=== PATIENT | female | born 1950 | race Caucasian/White ===

== ENCOUNTER → 2016-08-13 | Outpatient (CLI) | payer MEDICARE ==
--- NOTE | 2016-08-13 15:29 | US ---
EXAMINATION TYPE: US transvaginal DATE OF EXAM: 08/13/2016 1:23 PM COMPARISON: NONE CLINICAL HISTORY: Ovarian Cyst N83.20. TECHNIQUE: Transvaginal (TV), per order Date of LMP: 16 years prior EXAM MEASUREMENTS: Uterus: 5.0 x 2.0 x 4.0 cm Endometrial Stripe: 0.2 cm Right Ovary: 3.0 x 1.8 x 1.7 cm Left Ovary: not visualized cm TECHNOLOGIST IMPRESSION: 1. Uterus: Anteverted 2. Endometrium: wnl 3. Right Ovary: cyst with some internal echoes measuring 1.5 x 1.2 x 1.1cm 4. Left Ovary: not visualized due to overlying bowel gas 5. Bilateral Adnexa: wnl 6. Posterior cul-de-sac: wnl IMPRESSION: 1. 1.5 cm cyst right ovary. Follow-up is recommended. 2. Pelvic ultrasound is otherwise unremarkable.
== END | disposition home or self-care (01) ==
LOC: RADUSWWP 13:01
PROVIDERS: ATTEND Obstetrics & Gynecology
DX: N83.201 Unspecified ovarian cyst, right side (principal)
CPT/HCPCS: 76830

== ENCOUNTER → 2016-08-16 | Outpatient (CLI) | payer MEDICARE ==
--- NOTE | 2016-08-16 10:39 | BD ---
EXAMINATION TYPE: MG DEXA axial skeleton. DATE OF EXAM: 08/16/2016 10:11 AM COMPARISON: NONE CLINICAL HISTORY: Height: 5 FT 6 IN Weight: 169 FRAX RISK QUESTIONS: Alcohol (3 or more units per day): NO Family History (Parent hip fracture): NO Glucocorticoids (More than 3mos): NO (Ex: prednisone, prednisolone, methylprednisolone, dexamethasone, and hydrocortisone). History of Fracture in Adulthood: YES Secondary Osteoporosis: 1. Type 1 Diabetes: NO 2. Hyperthyroidism: NO 3. Menopause before 45: NO 4. Malnutrition: NO 5. Chronic liver disease: NO Rheumatoid Arthritis: NO Current Tobacco Use: NO RISK FACTORS HISTORY OF: Other Fractures since Age 50: YES When: 6-8 YRS AGO Family History of Osteoporosis: YES Active: YES Postmenopausal woman: AGE 50 MEDICATIONS: Additional Medications: WELLBUTRIN, ATTENOLOL,CALCIUM Additional History: EXAM MEASUREMENTS: Bone mineral densitometry was performed using the [employer] System. Bone mineral density as measured about the Lumbar spine is: ----- L1-L4(G/cm2): 0.970 T Score Values are as follows: ----- L2: -1.9 ----- L3: -1.4 ----- L4: -2.0 ----- L1-L4: -1.7 Bone mineral density has: Decreased -7.8% since study of: 2012 Bone mineral density about the R hip (g/cm2): 0.947 Bone mineral density about the L hip (g/cm2): 0.927 T Score values are as follows: -----R Neck: -0.7 -----L Neck: -0.8 -----R Intertrochanter: -1.2 -----L Intertrochanter: -0.7 Bone mineral density has: Decreased -2.9% since study of: 2012 IMPRESSION: Osteopenia (T Score between -2.5 and -1 as noted by T score values There is slightly increased risk of fracture and the patient may be considered for treatment. Re-Screen 1-2 years. LUMBAR SPINE NOTE: T-SCORE=SD OF THE YOUNG ADULT MEAN.
--- NOTE | 2016-08-17 10:48 | MM ---
Reason for exam: screening (asymptomatic). Last mammogram was performed 1 year and 1 month ago. History: Patient is postmenopausal. Took estrogen for 6 years. Took progesterone for 5 years. Physical Findings: A clinical breast exam by your physician is recommended on an annual basis and results should be correlated with mammographic findings. MG 3D Screening Mammo W/Cad Bilateral CC and MLO view(s) were taken. Prior study comparison: July 14, 2015, bilateral MG 3d screening mammo w/cad. May 14, 2014, bilateral MG screening mammo w CAD. May 15, 2013, bilateral digital screening mammo w/CAD. The breast tissue is heterogeneously dense. This may lower the sensitivity of mammography. There is no discrete abnormality. ASSESSMENT: Negative, BI-RAD 1 RECOMMENDATION: Routine screening mammogram of both breasts in 1 year.
== END | disposition home or self-care (01) ==
LOC: RADMAMWWP 09:35
PROVIDERS: ATTEND Obstetrics & Gynecology
DX: Z12.31 Encounter for screening mammogram for malignant neoplasm of breast (principal); M85.88 Other specified disorders of bone density and structure, other site; C56.9 Malignant neoplasm of unspecified ovary
CPT/HCPCS: 86304; 77080; 77063; 36415; G0202

== ENCOUNTER → 2017-08-30 | Outpatient (CLI) | payer MEDICARE ==
--- NOTE | 2017-08-30 20:07 | US ---
EXAMINATION TYPE: US transvaginal DATE OF EXAM: 08/30/2017 COMPARISON: US CLINICAL HISTORY: Previous Ovarian CYst N83.20. TECHNIQUE: . Transabdominal sonographic images of the pelvis were acquired. Transvaginal sonographi c images were medically necessary to better assess the following anatomy: Date of LMP: 17 years prior EXAM MEASUREMENTS: Uterus: 6.1 x 2.2 x 3.3 cm Endometrial Stripe: 0.3 cm Right Ovary: 2.0 x 1.2 x 1.3 cm Left Ovary: 1.7 x 0.9 x 1.1 cm 1. Uterus: Anteverted, wnl 2. Endometrium: wnl 3. Right Ovary: The previously seen 1.5 cm cyst is no longer evident and there is a small 4 mm cysti c area seen. 4. Left Ovary: wnl 5. Bilateral Adnexa: wnl 6. Posterior cul-de-sac: wnl IMPRESSION: Resolution of the previously seen 1.5 cm right ovarian cyst. Endometrium and ovaries are within normal limits.
== END | disposition home or self-care (01) ==
LOC: RADUSWWP 15:25
PROVIDERS: ATTEND Obstetrics & Gynecology
DX: N83.209 Unspecified ovarian cyst, unspecified side (principal)
CPT/HCPCS: 76830

== ENCOUNTER → 2017-09-23 | Outpatient (CLI) | payer MEDICARE ==
--- NOTE | 2017-09-26 10:15 | MM ---
Reason for exam: screening (asymptomatic). Last mammogram was performed 1 year and 1 month ago. History: Patient is postmenopausal. Took estrogen for 6 years. Took progesterone for 5 years. Physical Findings: A clinical breast exam by your physician is recommended on an annual basis and results should be correlated with mammographic findings. MG 3D Screening Mammo W/Cad Bilateral CC and MLO view(s) were taken. Prior study comparison: August 16, 2016, bilateral MG 3d screening mammo w/cad. July 14, 2015, bilateral MG 3d screening mammo w/cad. The breast tissue is heterogeneously dense. This may lower the sensitivity of mammography. There is no discrete abnormality. ASSESSMENT: Negative, BI-RAD 1 RECOMMENDATION: Routine screening mammogram of both breasts in 1 year.
== END | disposition home or self-care (01) ==
LOC: RADMAMWWP 07:53
PROVIDERS: ATTEND Obstetrics & Gynecology
DX: Z12.31 Encounter for screening mammogram for malignant neoplasm of breast (principal); C56.9 Malignant neoplasm of unspecified ovary
CPT/HCPCS: 36415; 77063; 77067; 86304

== ENCOUNTER → 2018-10-06 | Outpatient (CLI) | payer MEDICARE ==
--- NOTE | 2018-10-06 13:22 | US ---
EXAMINATION TYPE: US transvaginal DATE OF EXAM: 10/06/2018 COMPARISON: US 2018 CLINICAL HISTORY: N83.0 OVARIAN CYST. Hx ovarian cyst. Hx tubal ligation. TECHNIQUE: Transvaginal (TV). Transvaginal sonographic images were obtained. Date of LMP: 18 years prior EXAM MEASUREMENTS: Uterus: 5.9 x 3.8 x 2.2 cm Endometrial Stripe: 0.20 cm Right Ovary: 2.3 x 1.7 x 1.0 cm Left Ovary: 1.5 x 1.1 x 0.6 cm 1. Uterus: Anteverted Anechoic areas seen cervix. 2. Endometrium: wnl 3. Right Ovary: Ill-defined borders. Anechoic areas seen. Larger: 0.6 x 0.6 x 0.6 cm. 4. Left Ovary: Appears wnl. 5. Bilateral Adnexa: wnl 6. Posterior cul-de-sac: wnl IMPRESSION: No sizable ovarian cyst identified.
== END ==
LOC: RADUSWWP 10:03
PROVIDERS: ATTEND Obstetrics & Gynecology
DX: N83.202 Unspecified ovarian cyst, left side (principal)
CPT/HCPCS: 76830

== ENCOUNTER → 2018-10-27 | Outpatient (CLI) | payer MEDICARE ==
--- NOTE | 2018-10-30 13:41 | MM ---
Reason for exam: screening (asymptomatic). Last mammogram was performed 1 year and 1 month ago. History: Patient is postmenopausal. Took estrogen for 6 years. Took progesterone for 5 years. Physical Findings: A clinical breast exam by your physician is recommended on an annual basis and results should be correlated with mammographic findings. MG 3D Screening Mammo W/Cad Bilateral CC and MLO view(s) were taken. Prior study comparison: September 23, 2017, bilateral MG 3d screening mammo w/cad. August 16, 2016, bilateral MG 3d screening mammo w/cad. The breast tissue is heterogeneously dense. This may lower the sensitivity of mammography. No suspicious abnormality. No significant changes when compared with prior studies. ASSESSMENT: Negative, BI-RAD 1 RECOMMENDATION: Routine screening mammogram of both breasts in 1 year.
--- NOTE | 2018-10-30 17:20 | BD ---
EXAMINATION TYPE: Axial Bone Density DATE OF EXAM: 10/27/2018 COMPARISON: 08/16/2016 CLINICAL HISTORY: 68-year-old female disorder bone Height: 66 Weight: 178.3 FRAX RISK QUESTIONS: Alcohol (3 or more units per day): no Family History (Parent hip fracture): no Glucocorticoids (More than 3mos): no (Ex: prednisone, prednisolone, methylprednisolone, dexamethasone, and hydrocortisone). History of Fracture in Adulthood: yes Secondary Osteoporosis: 1. Type 1 Diabetes: no 2. Hyperthyroidism: no 3. Menopause before 45: no 4. Malnutrition: no 5. Chronic liver disease: no Rheumatoid Arthritis: no Current Tobacco Use: no RISK FACTORS HISTORY OF: Family History of Osteoporosis: no Active: yes Diet low in dairy products/other sources of calcium: no Postmenopausal woman: age 50 Lost more than 2 inches in height since high school: no Adrenal Insufficiency: unsure MEDICATIONS: bupropion, metoprolol, famotidine, Lumigan, meclizine Additional History: EXAM MEASUREMENTS: Bone mineral densitometry was performed using the [employer] System. Bone mineral density as measured about the Lumbar spine is: ----- L1-L4(G/cm2): 1.003 T Score Values are as follows: ----- L2: -2.3 ----- L3: -0.4 ----- L4: -1.6 ----- L1-L4: -1.5 Bone mineral density has: increased 4.0 % since study of: 08.16.2016 Bone mineral density about the R hip (g/cm2): 0.926 Bone mineral density about the L hip (g/cm2): 0.875 T Score values are as follows: -----R Neck: -0.8 -----L Neck: -1.2 -----R Total: -0.7 -----L Total: -0.9 Bone mineral density has: decreased -3.5 % since study of: 08.16.2016 IMPRESSION: Osteopenia (T Score between -2.5 and -1). There is slightly increased risk of fracture and the patient may be considered for treatment. Re-Screen 2-5 years. NOTE: T-SCORE=SD OF THE YOUNG ADULT MEAN.
== END | disposition home or self-care (01) ==
LOC: RADMAMWWP 08:07
PROVIDERS: ATTEND Obstetrics & Gynecology
DX: Z12.31 Encounter for screening mammogram for malignant neoplasm of breast (principal); M85.852 Other specified disorders of bone density and structure, left thigh; M85.88 Other specified disorders of bone density and structure, other site
CPT/HCPCS: 77063; 77067; 77080

== ENCOUNTER 2019-01-28 13:53 | Emergency (ER) | payer MEDICARE ==
[2019-01-28 14:00] VITALS: RESP 18
[2019-01-28] MEDS ORDERED: ONDANSETRON 4 MG/2 ML VIAL IVP STA (14:20)
[2019-01-28] MEDS ORDERED: SODIUM CHLORIDE 0.9% 1,000 ML IV STA (14:20)
--- NOTE | 2019-01-28 14:25 | ED ---
General Adult HPI - General Chief complaint: Nausea/Vomiting/Diarrhea Stated complaint: NVD Time Seen by Provider: 01/28/19 14:07 Source: patient, EMS Mode of arrival: EMS Limitations: no limitations - History of Present Illness Initial comments: Patient is 60-year-old female presenting to emergency Department with nausea, vomiting and diarrhea. Patient reports she came back from [place] tripped on Tuesday when she developed nausea and 3 episodes of vomiting. Patient reports she also developed epigastric abdominal pain that comes and goes. Patient reports today she developed pain in the same region after eating food. Patient states that she developed one episode of diarrhea today. Patient denies any hematochezia, melena or hematuria. Patient denies any urinary symptoms. Patient denies fever, chills, night sweats. Patient reports a mild headache of the last 2-3 days. Patient reports poor appetite of the last 2 days. Patient denies back pain or flank pain. - Related Data Allergies Allergy/AdvReac Type Severity Reaction Status Date / Time codeine AdvReac Nausea & Verified 01/28/19 14:42 Vomiting Review of Systems ROS Statement: Those systems with pertinent positive or pertinent negative responses have been documented in the HPI. ROS Other: All systems not noted in ROS Statement are negative. Past Medical History Past Medical History: Hypertension, Renal Disease Additional Past Medical History / Comment(s): Palpitaions, kidney failure History of Any Multi-Drug Resistant Organisms: None Reported Past Surgical History: Appendectomy, Orthopedic Surgery, Tubal Ligation Past Psychological History: Depression Smoking Status: Never smoker Past Alcohol Use History: None Reported Past Drug Use History: None Reported General Exam Limitations: no limitations General appearance: alert, in no apparent distress Head exam: Present: atraumatic, normocephalic, normal inspection Eye exam: Present: normal appearance, PERRL, EOMI Pupils: Present: normal accommodation ENT exam: Present: normal exam, normal oropharynx, mucous membranes moist, TM's normal bilaterally, normal external ear exam Neck exam: Present: normal inspection, full ROM. Absent: tenderness, lymphadenopathy Respiratory exam: Present: normal lung sounds bilaterally Cardiovascular Exam: Present: regular rate, normal rhythm, normal heart sounds GI/Abdominal exam: Present: soft, tenderness (Mild epigastric tenderness), normal bowel sounds, other (Negative Pimentel negative Rovsing and negative McBurney point tenderness). Absent: distended, guarding, rebound Extremities exam: Present: normal inspection, full ROM Back exam: Present: normal inspection, full ROM. Absent: CVA tenderness (R), CVA tenderness (L) Neurological exam: Present: alert, oriented X3 Psychiatric exam: Present: normal affect, normal mood Skin exam: Present: warm, intact, normal color Course Vital Signs 01/28/19 01/28/19 13:54 17:53 Temperature 97.8 F 98.0 F Pulse Rate 66 75 Respiratory 18 18 Rate Blood Pressure 136/70 131/65 O2 Sat by Pulse 99 99 Oximetry Medical Decision Making - Medical Decision Making Patient is a 68-year-old female presenting to emergency Department with nausea or vomiting. Labs are unremarkable. KUB is unremarkable. I suspect the patient to have developed gastritis/gastroenteritis. On reevaluation patient reports feeling better and does not have anymore nausea. Patient passed by mouth challenge. Advised the patient to drink lots of fluid and electrolytes. Patient advised to obtain [id number] Imodium to prevent diarrhea. Patient was discharged with Zofran. Patient's vitals are stable. Patient advised to follow-up with primary care. Strict return parameters were thoroughly discussed patient was understanding and agreeable. Case discussed with physician. - Lab Data Result diagrams: 01/28/19 15:10 01/28/19 15:10 Lab Results 01/28/19 01/28/19 01/28/19 Range/Units 15:10 15:10 16:30 WBC 6.9 (3.8-10.6) k/uL RBC 4.71 (3.80-5.40) m/uL Hgb 14.3 (11.4-16.0) gm/dL Hct 43.3 (34.0-46.0) % MCV 91.9 (80.0-100.0) fL MCH 30.3 (25.0-35.0) pg MCHC 33.0 (31.0-37.0) g/dL RDW 12.6 (11.5-15.5) % Plt Count 247 (150-450) k/uL Neutrophils % 77 % Lymphocytes % 15 % Monocytes % 6 % Eosinophils % 1 % Basophils % 0 % Neutrophils # 5.3 (1.3-7.7) k/uL Lymphocytes # 1.0 (1.0-4.8) k/uL Monocytes # 0.4 (0-1.0) k/uL Eosinophils # 0.1 (0-0.7) k/uL Basophils # 0.0 (0-0.2) k/uL Sodium 143 (137-145) mmol/L Potassium 4.3 (3.5-5.1) mmol/L Chloride 105 (98-107) mmol/L Carbon Dioxide 26 (22-30) mmol/L Anion Gap 12 mmol/L BUN 22 H (7-17) mg/dL Creatinine 1.06 H (0.52-1.04) mg/dL Est GFR (CKD-EPI)AfAm 63 (>60 ml/min/1.73 sqM) Est GFR (CKD-EPI)NonAf 54 (>60 ml/min/1.73 sqM) Glucose 112 H (74-99) mg/dL Calcium 10.0 (8.4-10.2) mg/dL Total Bilirubin 0.5 (0.2-1.3) mg/dL AST 21 (14-36) U/L ALT 20 (9-52) U/L Alkaline Phosphatase 75 (38-126) U/L Total Protein 7.8 (6.3-8.2) g/dL Albumin 4.6 (3.5-5.0) g/dL Lipase 96 (23-300) U/L Urine Color Light Yellow Urine Appearance Clear (Clear) Urine pH 7.0 (5.0-8.0) Ur Specific [place] 1.006 (1.001-1.035) Urine Protein Negative (Negative) Urine Glucose (UA) Negative (Negative) Urine Ketones Negative (Negative) Urine Blood Negative (Negative) Urine Nitrite Negative (Negative) Urine Bilirubin Negative (Negative) Urine Urobilinogen <2.0 (<2.0) mg/dL Ur Leukocyte Esterase Trace H (Negative) Urine RBC <1 (0-5) /hpf Urine WBC 3 (0-5) /hpf Ur Squamous Epith Cells <1 (0-4) /hpf Amorphous Sediment Rare H (None) /hpf Urine Bacteria Rare H (None) /hpf Urine Mucus Occasional H (None) /hpf Disposition Clinical Impression: Gastritis Disposition: HOME SELF-CARE Condition: Stable Instructions (If sedation given, give patient instructions): Acute Nausea and Vomiting (ED) Additional Instructions: Please take prescribed medication as directed. Please attempt to drink a lot of fluids. Please return to the emergency department if symptoms worsen. Please follow with primary care. Is patient prescribed a controlled substance at d/c from ED?: No Referrals: Toni Mehta MD [Primary Care Provider] - 1-2 days Time of Disposition: 17:24
--- NOTE | 2019-01-28 14:53 | XR ---
KUB HISTORY: Nausea vomiting and diarrhea for weeks, pain Frontal KUB spelled on 2 images. Lung bases are clear. Degenerative disc changes are present in the visualized spine, some sclerosis a t L5 somewhat increased in the left aspect of the vertebral body as compared to right could be due to underlying spondylolysis but is indeterminate. There is no pathologic calcification, pneumoperitoneu m, or bowel obstruction. There are overlying artifacts. IMPRESSION: Nonspecific bowel gas pattern. Suspect degenerative disc changes within the lumbar spine, additional findings above.
[2019-01-28 15:40] LABS: Albumin 4.6 g/dL (3.5-5.0); Potassium 4.3 mmol/L (3.5-5.1); Total Bilirubin 0.5 mg/dL (0.2-1.3); Total Protein 7.8 g/dL (6.3-8.2)
[2019-01-28 15:50] LABS: Basophils % (A) 0 %; Eosinophils # (A) 0.1 k/uL (0-0.7); Eosinophils % (A) 1 %; HCT 43.3 % (34.0-46.0); HGB 14.3 gm/dL (11.4-16.0); Lymphocytes % (A) 15 %; MCH 30.3 pg (25.0-35.0); MCV 91.9 fL (80.0-100.0); Monocytes # (A) 0.4 k/uL (0-1.0); Monocytes % (A) 6 %; Neutrophils # (A) 5.3 k/uL (1.3-7.7); Neutrophils % (A) 77 %; Platelet Count 247 k/uL (150-450); RBC 4.71 m/uL (3.80-5.40); RDW 12.6 % (11.5-15.5); WBC 6.9 k/uL (3.8-10.6)
[2019-01-28 16:57] LABS: Amorphous Sediment,Urine Rare /hpf; Appearance,Urine Clear (Clear); Bacteria,Urine Rare /hpf; Bilirubin,Urine Negative (Negative); Blood,Urine Negative (Negative); Color,Urine Light Yellow; Glucose,Urine (UA) Negative (Negative); Ketones,Urine Negative (Negative); Leukocyte Esterase,Urine Trace (Negative); Mucus,Urine Occasional /hpf; Nitrite,Urine Negative (Negative); Protein,Urine Negative (Negative); RBC,Urine <1 /hpf (0-5); Specific Gravity,Urine 1.006 (1.001-1.035); Squamous Epithelial Cell,Urine <1 /hpf (0-4); Urobilinogen,Urine <2.0 mg/dL (<2.0); WBC,Urine 3 /hpf (0-5)
[2019-01-28 17:54] VITALS: BP 131/65; PULSE 75; TEMP 98
== END 2019-01-28 17:54 | disposition home or self-care (01) ==
LOC: EC 13:53
DX: K29.70 Gastritis, unspecified, without bleeding (principal); I12.9 Hypertensive chronic kidney disease with stage 1 through stage 4 chronic kidney disease, or unspecified chronic kidney disease; N18.9 Chronic kidney disease, unspecified; Z88.5 Allergy status to narcotic agent
CPT/HCPCS: 36415; 80053; 83690; 85025; 81001; 74018; 99284; 96374; 96361 ×2; J2405

== ENCOUNTER → 2019-04-12 | Outpatient (CLI) | payer MEDICARE ==
--- NOTE | 2019-04-12 14:00 | US ---
EXAMINATION TYPE: US kidneys/renal and bladder DATE OF EXAM: 04/12/2019 COMPARISON: NONE CLINICAL HISTORY: N18.3 CKD STAGE 3. Renal failure EXAM MEASUREMENTS: Right Kidney: 9.5 x 3.3 x 3.4 cm Left Kidney: 10.3 x 4.7 x 4.0cm Right Kidney: dilated renal pelvis without calyceal dilatation Left Kidney: no evidence of hydronephrosis Bladder: appears wnl Bilateral Jets seen: no There is no evidence for hydronephrosis at this point in time. No nephrolithiasis is seen. No daljit s are identified. The urinary bladder is anechoic. Bilateral ureteral jets are not seen. IMPRESSION: Extrarenal pelvis on the right. No hydronephrosis is evident bilaterally.
== END | disposition home or self-care (01) ==
LOC: RADUSWWP 13:19
PROVIDERS: ATTEND Internal Medicine Nephrology
DX: N18.3 Chronic kidney disease, stage 3 (moderate) (principal)
CPT/HCPCS: 76770

== ENCOUNTER → 2020-02-06 | Outpatient (CLI) | payer MEDICARE ==
--- NOTE | 2020-02-06 15:34 | US ---
EXAMINATION TYPE: US transvaginal DATE OF EXAM: 02/06/2020 COMPARISON: NONE CLINICAL HISTORY: N83.01 Right ovarian cyst. TECHNIQUE: Transvaginal (TV). Transabdominal sonographic images of the pelvis were acquired. Trans vaginal sonographic images were medically necessary to better assess the following anatomy: Date of LMP: 19 years prior EXAM MEASUREMENTS: Uterus: 4.4 x 2.0 x 3.0 cm Endometrial Stripe: 0.1 cm Right Ovary: 1.7 x 1.0 x 1.1 cm Left Ovary: obscured by overlying bowel gas 1. Uterus: Anteverted wnl 2. Endometrium: wnl 3. Right Ovary: wnl 4. Left Ovary: Obscured by overlying bowel gas 5. Bilateral Adnexa: free fluid pocket in left adnexa measuring 1.1 x 0.7 x 0.9 cm 6. Posterior cul-de-sac: wnl IMPRESSION: 1. Small amount of free fluid within the left adnexal region.
== END | disposition home or self-care (01) ==
LOC: RADUSWWP 12:04
PROVIDERS: ATTEND Obstetrics & Gynecology
DX: N94.89 Other specified conditions associated with female genital organs and menstrual cycle (principal)
CPT/HCPCS: 76830

== ENCOUNTER → 2020-03-21 | Outpatient (CLI) | payer MEDICARE ==
--- NOTE | 2020-03-24 11:59 | MM ---
Reason for exam: screening (asymptomatic). Last mammogram was performed 1 year and 5 months ago. History: Patient is postmenopausal. Took estrogen for 6 years. Took progesterone for 5 years. Physical Findings: A clinical breast exam by your physician is recommended on an annual basis and results should be correlated with mammographic findings. MG 3D Screening Mammo W/Cad Bilateral CC and MLO view(s) were taken. Prior study comparison: October 27, 2018, bilateral MG 3d screening mammo w/cad. September 23, 2017, bilateral MG 3d screening mammo w/cad. There are scattered fibroglandular densities. No significant changes when compared with prior studies. ASSESSMENT: Benign, BI-RAD 2 RECOMMENDATION: Routine screening mammogram of both breasts in 1 year.
== END | disposition home or self-care (01) ==
LOC: RADMAMWWP 08:09
PROVIDERS: ATTEND Obstetrics & Gynecology
DX: Z12.31 Encounter for screening mammogram for malignant neoplasm of breast (principal)
CPT/HCPCS: 77063; 77067

== ENCOUNTER → 2021-03-06 | Outpatient (CLI) | payer MEDICARE ==
--- NOTE | 2021-03-06 13:35 | US ---
EXAMINATION TYPE: US transvaginal DATE OF EXAM: 03/06/2021 COMPARISON: NONE CLINICAL HISTORY: C56.9 OVARIAN CA. mother had ovarian CA, patient has no symptoms, CA 125 has been n ormal, getting labs after TV, h/o tubal ligation TECHNIQUE: TV Transvaginal sonographic images Date of LMP: 21yrs ago EXAM MEASUREMENTS: Uterus: 6.1 x 3.2 x 2.1cm Endometrial Stripe: 0.3 cm Right Ovary: 1.8 x 1.4 x 1.2 cm Left Ovary: 1.9 x 1.4 x 1.5 cm 1. Uterus: Anteverted wnl 2. Endometrium: wnl 3. Right Ovary: anechoic area, as seen previously, measures 1.1cm 4. Left Ovary: wnl 5. Bilateral Adnexa: wnl 6. Posterior cul-de-sac: wnl IMPRESSION: 1. Small right ovarian follicle.
== END | disposition home or self-care (01) ==
LOC: RADUSWWP 12:50
PROVIDERS: ATTEND Obstetrics & Gynecology
DX: C56.1 Malignant neoplasm of right ovary (principal)
CPT/HCPCS: 36415; 76830; 86304

== ENCOUNTER → 2021-04-20 | Outpatient (CLI) | payer MEDICARE ==
--- NOTE | 2021-04-20 12:55 | BD ---
EXAMINATION TYPE: Axial Bone Density DATE OF EXAM: 04/20/2021 COMPARISON: 10/27/2018 CLINICAL HISTORY: Postmenopausal Height: 66 IN Weight: 180 LBS FRAX RISK QUESTIONS: History of Fracture in Adulthood: YES RT FOOT AGE 56 RISK FACTORS HISTORY OF: Active: YES Postmenopausal woman: AGE 50 Take estrogen and/or progesterone medications: NOT NOW How long: TOOK CONTROL FOR 15 YEARS MEDICATIONS: Additional Medications: VIT D, CALCIUM, BUPROPION, ATORVASTATIN, METOPROLOL, MECLIZINE, OMEPRAZOLE, C OQ10, ASPIRIN, MAGNESIUM EXAM MEASUREMENTS: Bone mineral densitometry was performed using the [employer] System. Bone mineral density as measured about the Lumbar spine is: ----- L1-L4(G/cm2): 0.982 T Score Values are as follows: ----- L2: -2.3 ----- L3: -0.6 ----- L4: -1.7 ----- L1-L4: -1.7 Bone mineral density has: DECREASED -1.1% since study of: 10/27/2018 Bone mineral density about the R hip (g/cm2): 0.906 Bone mineral density about the L hip (g/cm2): 0.852 T Score values are as follows: -----R Neck: -1.0 -----L Neck: -1.3 -----R Total: -0.8 -----L Total: -0.8 Bone mineral density has: DECREASED -0.1% since study of: 10/27/2018 IMPRESSION: Osteopenia. NOTE: T-SCORE=SD OF THE YOUNG ADULT MEAN.
== END | disposition home or self-care (01) ==
LOC: RADBDWWP 08:00
PROVIDERS: ATTEND Obstetrics & Gynecology
DX: M85.89 Other specified disorders of bone density and structure, multiple sites (principal); Z78.0 Asymptomatic menopausal state
CPT/HCPCS: 77080

== ENCOUNTER → 2021-05-11 | Outpatient (CLI) | payer MEDICARE ==
--- NOTE | 2021-05-12 14:16 | MM ---
Reason for exam: screening (asymptomatic). Last mammogram was performed 1 year and 2 months ago. History: Patient is postmenopausal. Took estrogen for 6 years. Took progesterone for 5 years. Physical Findings: A clinical breast exam by your physician is recommended on an annual basis and results should be correlated with mammographic findings. MG 3D Screening Mammo W/Cad Bilateral CC and MLO view(s) were taken. Prior study comparison: March 21, 2020, bilateral MG 3d screening mammo w/cad. October 27, 2018, bilateral MG 3d screening mammo w/cad. The breast tissue is heterogeneously dense. This may lower the sensitivity of mammography. No significant changes when compared with prior studies. ASSESSMENT: Negative, BI-RAD 1 RECOMMENDATION: Routine screening mammogram of both breasts in 1 year.
== END | disposition home or self-care (01) ==
LOC: RADMAMWWP 15:49
PROVIDERS: ATTEND Obstetrics & Gynecology
DX: Z12.31 Encounter for screening mammogram for malignant neoplasm of breast (principal); Z78.0 Asymptomatic menopausal state
CPT/HCPCS: 77063; 77067

== ENCOUNTER → 2021-06-09 | Outpatient (CLI) | payer MEDICARE ==
--- NOTE | 2021-06-09 12:04 | XR ---
EXAMINATION TYPE: XR Hip Complete LT DATE OF EXAM: 06/09/2021 COMPARISON: NONE HISTORY: Pain TECHNIQUE: 2 views submitted FINDINGS: There is no evidence of erosive change or acute fracture. Mild concentric narrowing of the hip joint. No erosive changes. IMPRESSION: 1. No evidence of acute fracture or dislocation.
--- NOTE | 2021-06-09 12:06 | XR ---
EXAM TYPE: LUMBAR SPINE X RAY SERIES COMPARISON: NONE HISTORY: Pain TECHNIQUE: 4 views are submitted. FINDINGS: Alignment is anatomic. The pedicles are intact. The transverse processes are intact. There is hype rtrophic and degenerative change of the spine with severe changes at L3-4 and L5-S1. Facet arthropath y L5-S1. Diffuse osteopenia. Slight curvature of the spine. IMPRESSION: 1. Multilevel moderate to severe degenerative disc disease most marked at L3-4 and L5-S1.
== END | disposition home or self-care (01) ==
LOC: RADXRMAIN 10:15
PROVIDERS: ATTEND Internal Medicine
DX: M51.36 Other intervertebral disc degeneration, lumbar region (principal); M51.37 Other intervertebral disc degeneration, lumbosacral region; M25.552 Pain in left hip
CPT/HCPCS: 72100; 73502

== ENCOUNTER → 2022-03-02 | Outpatient (CLI) | payer MEDICARE ==
--- NOTE | 2022-03-02 08:49 | US ---
EXAMINATION TYPE: US transvaginal DATE OF EXAM: 03/02/2022 COMPARISON: US 03/06/2021 CLINICAL HISTORY: N83.0 Ovarian cyst, Post ranjit bleeding N95.0. Family hx of ovarian cancer. Hx righ t ovarian cyst, tubal ligation, appendectomy. Patient had episode of post menopausal bleeding. . TECHNIQUE: Date of LMP: 22 years ago. EXAM MEASUREMENTS: Uterus: 6.3 x 4.4 x 1.9 cm Endometrial Stripe: 0.17 cm Right Ovary: 4.0 x 1.7 x 1.4 cm Left Ovary: 2.4 x 1.6 x 1.7 cm 1. Uterus: Anteverted Appears heterogeneous. Subcentimeter hypoechoic areas in cervix likely repre senting nabothian cysts.. Hyperechoic focus seen in cervix: 0.1 x 0.1 x 0.1 representing a calcificat ion. 2. Endometrium: Measures 0.17 cm. 3. Right Ovary: Slightly limited visibility. Hypoechoic area seen: 1.1 x 1.0 x 0.8 cm. Anechoic area with echogenic component seen: 1.2 x 1.1 x 0.9 cm. 4. Left Ovary: Appears wnl 5. Bilateral Adnexa: Appear wnl 6. Posterior cul-de-sac: Minimal fluid seen. IMPRESSION: Stable small right ovarian follicle.
== END | disposition home or self-care (01) ==
LOC: RADUSWWP 07:22
PROVIDERS: ATTEND Obstetrics & Gynecology
DX: N83.01 Follicular cyst of right ovary (principal); N83.9 Noninflammatory disorder of ovary, fallopian tube and broad ligament, unspecified; N95.0 Postmenopausal bleeding
CPT/HCPCS: 76830

== ENCOUNTER → 2022-05-12 | Outpatient (CLI) | payer MEDICARE ==
--- NOTE | 2022-05-12 16:00 | US ---
EXAMINATION TYPE: US kidneys/renal and bladder DATE OF EXAM: 05/12/2022 COMPARISON: NONE CLINICAL HISTORY: ckd stage 3b N18.32. abn labs, CKD, no symptoms EXAM MEASUREMENTS: Right Kidney: 9.1 x 4.0 x 3.6 cm Left Kidney: 9.5 x 3.9 x 5.5 cm Right Kidney: No hydronephrosis or masses seen Left Kidney: No hydronephrosis or masses seen Bladder: wnl Bilateral Jets seen: Yes There is no evidence for hydronephrosis at this point in time. No nephrolithiasis is seen. No daljit s are identified. The urinary bladder is anechoic. Bilateral ureteral jets are seen. IMPRESSION: Unremarkable study.
== END | disposition home or self-care (01) ==
LOC: RADUSWWP 15:31
PROVIDERS: ATTEND Internal Medicine Nephrology
DX: N18.32 Chronic kidney disease, stage 3b (principal)
CPT/HCPCS: 76770

== ENCOUNTER → 2022-05-13 | Outpatient (CLI) | payer MEDICARE ==
--- NOTE | 2022-05-13 16:50 | MM ---
Reason for Exam: Screening (asymptomatic). Last screening mammogram was performed 12 month(s) ago. Patient History: Menarche at age 13. First Full-Term at age 25. Postmenopausal. Estrogen for 6 years until age 55. Progesterone for 5 years until age 55. Risk Values: Alena 5 year model risk: 1.9%. NCI Lifetime model risk: 5.4%. Prior Study Comparison: 10/27/2018 Bilateral Screening Mammogram, [facility]. 03/21/2020 Bilateral Screening Mammogram, [facility]. 05/11/2021 Bilateral Screening Mammogram, [facility]. Tissue Density: The breast tissue is heterogeneously dense. This may lower the sensitivity of mammography. Findings: Analyzed By CAD. No significant interval change No suspicious groups of microcalcifications, spiculated or lobular masses, architectural distortion or other secondary signs of malignancy are mammographically apparent. Overall Assessment: Benign, BI-RAD 2 Management: Screening Mammogram of both breasts in 1 year. A negative mammogram report should not preclude additional follow up of suspicious palpable abnormalities. Patient should continue monthly self breast exam. A clinical breast exam by your physician is recommended on an annual basis and results should be correlated with mammographic findings. Electronically signed and approved by: Andrea Swanson D.O. Radiologis
== END | disposition home or self-care (01) ==
LOC: RADMAMWWP 08:50
PROVIDERS: ATTEND Obstetrics & Gynecology
DX: Z12.31 Encounter for screening mammogram for malignant neoplasm of breast (principal); Z78.0 Asymptomatic menopausal state
CPT/HCPCS: 77063; 77067

== ENCOUNTER → 2022-12-11 | Outpatient (CLI) | payer MEDICARE ==
--- NOTE | 2022-12-11 18:00 | MR ---
EXAMINATION TYPE: MR lumbar spine wo con DATE OF EXAM: 12/11/2022 COMPARISON: None HISTORY: 72-year-old female Low back pain and numbness into Rt leg/toes TECHNIQUE: Multiplanar, multisequence images of the lumbar spine were acquired without IV contrast. FINDINGS: There is a 1 cm T1 hypointense lesion within the anterior L4 vertebral body that is T2 hyperintense. No additional lesions are seen. There are scattered Modic type I endplate change, for example, anteriorly at L1-L2, T11-T12, and L5-S 1. Fatty Modic type II endplate change primarily at L3-L4. Moderate multilevel degenerative disc disease with desiccated and bulging disks throughout. There is ligamentum flavum thickening mid and lower lumbar spine with hypertrophic facet arthropathy. Conus medullaris is normal. Degenerative grade 1 retrolisthesis L1-L2. Remaining alignment is maintained. Vertebral body heights are preserved. Changes result in overall mild spinal canal stenoses at L3-L4 and L4-L5. There is no high-grade canal compromise. On the right, changes resulting in moderate neuroforaminal stenosis at L3-L4 and L5-S1. Mild various other levels. On the left, changes result in moderate neural foraminal stenosis at L5-S1 and mild various other lev els. No prevertebral or paravertebral soft tissue abnormality seen. IMPRESSION: 1. Indeterminate 1 cm lesion within the anterior L4 vertebral body. Most likely an atypical hemangiom a in the absence of any known underlying primary neoplasm. Consider surveying the skeleton with nucle ar medicine whole body bone scan. 3-6 month follow-up MRI can also be performed. 2. Moderate multilevel disc disease. Some levels of moderate type I edematous endplate change such as at T11-T12, L1-L2, and L5-S1. 3. Scattered facet arthropathy. Degenerative grade 1 retrolisthesis at L1-L2. 4. Overall mild spinal canal stenosis at L3-L4 and L4-L5. No high-grade canal compromise. 5. Moderate neuroforaminal stenosis on the right at L3-L4 and both sides at L5-S1.
== END | disposition home or self-care (01) ==
LOC: RADMRIMAIN 14:23
PROVIDERS: ATTEND Internal Medicine
DX: M51.36 Other intervertebral disc degeneration, lumbar region (principal); M47.816 Spondylosis without myelopathy or radiculopathy, lumbar region; M43.16 Spondylolisthesis, lumbar region; M48.061 Spinal stenosis, lumbar region without neurogenic claudication; R20.0 Anesthesia of skin
CPT/HCPCS: 72148

== ENCOUNTER → 2023-02-08 | Day surgery (SDC) | payer MEDICARE ==
[~2023-02-08] MED LIST: IOPAMIDOL M200 10 ML VIAL ONE; LACTATED RINGERS 1,000 ML IV SCH; methylPREDNISolone ACETATE 40 MG/ML 1 ML VIAL ONE
[2023-02-08 12:27] VITALS: TEMP 97.6
--- NOTE | 2023-02-08 13:32 | P.PCN ---
Date of Procedure: 02/08/23 Procedure(s) Performed: PREOPERATIVE DIAGNOSIS: 1-Lumbar radiculopathy . 2-lumbar degenerative disc disease. 3-lumbar spondylosis with lumbar facet arthropathy without myelopathy POSTOPERATIVE DIAGNOSIS: 1-lumbar radiculopathy. 2-lumbar degenerative disc disease. 3-lumbar spondylosis with facet arthropathy without myelopathy PROCEDURE 1. Transforaminal epidural steroid injection under fluoroscopic guidance at right L5-S1 level. (Fluoroscopy images stored on file in the radiology Department ) 2. Lumbar epidurogram . ANESTHESIA: Local with 1% lidocaine 3 ml. EBL: Minimal PROCEDURE INDICATION: The patient with low back pain and radiculopathy symptoms unresponsive to conservative treatment. PROCEDURE DESCRIPTION / TECHNIQUE: The patient was seen and identified in the preoperative area. Risks, benefits, complications, and alternatives were discussed with the patient. The patient agreed to proceed with the procedure and signed the consent. IV was started, and vital signs were stable. Patient was taken to the OR and time out was completed. The patient was placed in the prone position on procedure table and a pillow was placed under the abdomen to reduce lumbar lordosis. The lumbosacral area was prepped and draped in the usual sterile fashion. Critical pause was taken. Vital signs were closely monitored during the procedure. Using oblique fluoroscopy, the chin of the ``Anoop dog at right L5-S1 level was identified, and the skin and deeper tissues just below was localized with 1% lidocaine. Subsequently, a 22-gauge 3.5-inch spinal needle was advanced under a tunneled view fluoroscopic guidance just underneath the chin of the `Andressay dog at the right L5-S1 Under lateral fluoroscopy, the needle was then advanced to the posterior border of the interforaminal space. After negative aspiration of CSF and blood and with no paresthesias, 1 mL Isovue 200 contrast dye was injected excellent epidurogram and outlining of the nerve root Subsequently, 3 mL of block solution containing 40 mg Depo-Medrol and 2 mL of 0.9% normal saline PF was injected. Needle was removed . At the end of the procedure, skin was cleansed, and bandages were applied. COMPLICATIONS:none DISPOSITION / PLANS: The patient was placed in a supine position and transferred to the recovery area in a stable condition for observation. There was no evidence of lower extremity motor or sensory deficit after the procedure. Patient was discharged from the recovery room after meeting discharge criteria. Home discharge instructions were given to the patient by the staff. The patient was reexamined prior to discharge. The last dose of Eliquis was taken 3 days ago
[2023-02-08 13:34] VITALS: BP 165/75; PULSE 76; RESP 14
--- NOTE | 2023-02-08 13:56 | FL ---
Fluoroscopy History: FL TIME 0.37 MINS 4 SEC FL TIME USED DAP [id number]
== END ==
LOC: ORPAIN 12:04
PROVIDERS: ATTEND Specialist
DX: M51.16 Intervertebral disc disorders with radiculopathy, lumbar region (principal); M47.26 Other spondylosis with radiculopathy, lumbar region; Z79.01 Long term (current) use of anticoagulants; Z79.899 Other long term (current) drug therapy
CPT/HCPCS: 64483; J1030; Q9966

== ENCOUNTER → 2023-03-03 | Outpatient (CLI) | payer MEDICARE ==
[2023-03-03 09:09] VITALS: BP 142/76; PULSE 73; RESP 15; TEMP 97.2
--- NOTE | 2023-03-03 14:50 | P.PAINPG ---
PQRS Measure Charge Sheet Comment: HISTORY OF PRESENT ILLNESS: 72 yr old female w at side presents today w severe and chronic LBP secondary to DDD, spondylosis, stenosis and facet arthropathy without myelopathy for evaluation s/p R TFESI L5-S1. Pt states she experienced 0 % pain relief s/p procedure. Pt states pain level is provoked at 7/10 in intensity, constant, localized in the lower lumbar spine , sharp in character w shooting pain towards the R hip and RLE. Pain is provoked by standing/ walking for periods of 5 min or more. Pain is alleviated by medications (Tramadol, Tyl), use of a walker for ambulatory assistance, heat> ice, PT x 3 wks which she is currently in, chiropractic treatments semi weekly from Oct - Dec 2022, repositioning and rest. Oswestry axial pain score at 32. Interventional procedures include R TFESI L5-S1 Medications include BioFreeze gel, Tramadol, Tyl REVIEW OF ORGAN SYSTEMS: CONSTITUTIONAL: No fevers or chills. No recent weight loss. NEUROLOGICAL: + numbness and tingling along the distal extremities. No seizure disorders or headaches. MUSCULOSKELETAL: + pain PSYCHIATRIC: Denies current depression or suicidal thoughts. Physical Examinations : Constitutional : Cooperative , not in acute distress . Neurologic : Cranial nerve II to XII intact. No focal neurological deficits. Psychiatric : alert & oriented x 3. Matching mood & appropriate affect. Judgment & insight intact. Musculoskeletal : Cervical Spine Motor strength in the deltoid and biceps: Normal right side. Normal Left side Motor strength biceps and the wrist extensors: Normal right side . Normal left side Motor strength in the triceps muscle: Normal right side. Normal left side Deep tendon reflexes: Normal at the biceps. Normal at Brachioradialis. Normal at triceps Vertebral body tenderness to deep palpation over Cervical facet loading test: positive bilaterally Spurling test: positive bilaterally Neck distraction test: positive bilaterally Shaylee sign: positive bilaterally Lumbar spine +R Daniel test Motor strength lower extremities ,thigh and legs 5/5 Right side , 5/5 Left side Deep tendon reflexes : Normal Knee Jerk. Normal Ankle Jerk Vertebral body tenderness Kaye Test positive Lumbar facet Loading Test: positive Right / positive Left Range of motion of the lumbar spine Flexion 30 degrees, extension 10 degrees Straight Leg Raise test: Left/ Right positive at 35 degrees Laura test: positive right / positive left. Severe tenderness over the Sacroiliac joint on the Right / Left sides Gaenslen test: positive bilaterally Seated flexion test: positive bilaterally. Sacral spine : Severe tenderness over the Sacroiliac joint: right side / left side Range of motion: Flexion of the lumbar spine <60 degrees Range of motion: Extension of the lumbar spine <20 degrees Gaenslen's Test positive Ralph's Test positive Laura test: positive right side / left side Thigh Thrust Test Sacral Thrust Test Imaging: MRI noncontrast of the lumbar spine from 12/11/22 reviewed Assessment/ Plan : Lumbar DDD Recommendation of medication management. Lidoderm 5% #30 w 1 RF . Use, side effects, adverse reactions and safe storage discussed. Pt acknowledged understanding. R hip x-ray Dx M16.10. All questions answered. I have spent greater than 30 minutes on patient care today. Dr Moreno was available by phone for the evaluation of this patient. The time was used to review the medical records including relevant urine studies and Prescription history (MAPs), review of the available imaging, evaluation and examination of the patient, coordination of care with the medical staff and if applicable referring physicians, as well as creation of the medical record PQRS Narrative: Smoking Status Never smoker Hx Alcohol Use (MH) No Home Medications: Ambulatory Orders Apixaban [Eliquis] 5 mg PO BID 02/01/23 Atorvastatin [Lipitor] 40 mg PO DAILY 02/01/23 Bimatoprost [Lumigan 0.01% Ophth Soln] 1 drop BOTH EYES DAILY 02/01/23 Calcium Carbonate [Calcium] 600 mg PO DAILY 02/01/23 L.acidoph,Paracasei, B.lactis [Probiotic] 1 each PO DAILY 02/01/23 Meclizine [Antivert] 12.5 mg PO DIRECTED PRN 02/01/23 Metoprolol Tartrate [Lopressor] 12.5 mg PO BID 02/01/23 Multivitamins, Thera [Multivitamin (formulary)] 1 tab PO DAILY 02/01/23 Omeprazole 20 mg PO DAILY 02/01/23 Ubidecarenone [Co Q-10] 200 mg PO DAILY 02/01/23 buPROPion HCL [buPROPion HCL SR] 225 mg PO DAILY 02/01/23 Lidocaine 5% Patch [Lidoderm] 1 patch TOPICAL DAILY 30 Days #30 patch 03/03/23 Controlled Substance Measures - Controlled Substance Measures Is patient prescribed a controlled substance at discharge?: No
== END ==
LOC: PNWHC3 08:07
PROVIDERS: ATTEND Specialist
DX: M51.36 Other intervertebral disc degeneration, lumbar region (principal); Z88.5 Allergy status to narcotic agent
CPT/HCPCS: 99211

== ENCOUNTER → 2023-04-07 | Outpatient (CLI) | payer MEDICARE ==
--- NOTE | 2023-04-07 13:28 | XR ---
EXAMINATION TYPE: XR chest 2V DATE OF EXAM: 04/07/2023 COMPARISON: NONE HISTORY: Shortness of breath TECHNIQUE: Frontal and lateral views of the chest are obtained. FINDINGS: Scattered senescent parenchymal changes noted. Hyperinflation compatible with COPD. No evidence for infiltrate. No evidence for atelectasis. Heart size is stable. Mediastinal structures are stable and grossly unremarkable. No evidence for hilar prominence. Degenerative changes dorsal spine. IMPRESSION: 1. No evidence for acute pulmonary disease.
[2023-04-07 13:48] LABS: Partial Thromboplastin Time 27.9 sec (22.0-30.0); Prothrombin Time 10.4 sec (9.0-12.0)
[2023-04-07 20:55] LABS: ALT 24 U/L (8-44); AST 18 U/L (13-35); Albumin 4.5 d/dL (3.8-4.9); Albumin/Globulin Ratio 2.05 Ratio (1.60-3.17); Alkaline Phosphatase 68 U/L (41-126); BUN/Creat Ratio 17.45 Ratio (12.00-20.00); Blood Urea Nitrogen 19.2 mg/dL (9.0-27.0); Carbon Dioxide 29.3 mmol/L (21.6-31.8); Chloride 107 mmol/L (96-109); Globulin 2.2 d/dL (1.6-3.3); Glucose 91 mg/dL (70-110); Potassium 4.8 mmol/L (3.5-5.5); Sodium 145 mmol/L (135-145); Total Bilirubin 0.4 mg/dL (0.3-1.2); Total Protein 6.7 d/dL (6.2-8.2)
[2023-04-07 21:53] LABS: Appearance,Urine Clear (Clear); Bilirubin,Urine Negative (Negative); Blood,Urine Negative (Negative); Color,Urine Yellow (Yellow); Ketones,Urine Negative (Negative); Nitrite,Urine Negative (Negative); Specific Gravity,Urine 1.011 (1.001-1.030); Urobilinogen,Urine 0.2 E.U./DL
[2023-04-07 22:05] LABS: HCT 37.9 % (37.2-46.3); HGB 12.3 d/dL (12.0-15.0); MCHC 32.5 d/dL (32.0-37.0); MCV 95.5 FL (80.0-97.0); Mean Platelet Volume 12.2 FL (9.5-12.2); NRBC Per 100 WBC 0 X 10*3/uL (0.00-0.01); Platelet Count 211 X 10*3/uL (140-440); RBC 3.97 X 10*6/uL (4.10-5.20); RDW 12.2 % (11.5-14.5); WBC 4.55 X 10*3/uL (4.50-10.00)
== END | disposition home or self-care (01) ==
LOC: LABWHC1 12:12
PROVIDERS: ATTEND Specialist
DX: M51.26 Other intervertebral disc displacement, lumbar region (principal); M48.00 Spinal stenosis, site unspecified; R06.02 Shortness of breath
CPT/HCPCS: 36415; 71046; 80053; 81003; 85027; 85610; 85730; 87070; 87086

== ENCOUNTER → 2023-06-07 | Outpatient (CLI) | payer MEDICARE ==
--- NOTE | 2023-06-07 19:02 | US ---
EXAMINATION TYPE: US pelvic complete DATE OF EXAM: 06/07/2023 COMPARISON: NONE CLINICAL INDICATION: Female, 72 years old with history of N83.00 FOLLICULAR CYST OF OVARY, UNSPECIFIE D SIDE; clinical support manager notes: Annual screening - mother passed from ovarian cancer TECHNIQUE: Transabdominal sonographic images of the pelvis were acquired. Transvaginal sonographic i mages were medically necessary to better assess the following anatomy: ovaries Date of LMP: unknown EXAM MEASUREMENTS: Uterus: 5.6 x 2.5 x 4.9 cm Endometrial Stripe: 0.1 cm Right Ovary: 1.9 x 1.1 x 1.6 cm Left Ovary: 2.0 x 1.2 x 1.1 cm 1. Uterus: Anteverted and otherwise wnl 2. Endometrium: Nonspecific trace sliver of fluid within noted by the clinical support manager. 3. Right Ovary: multiple echogenic foci 4. Left Ovary: wnl 5. Bilateral Adnexa: Trace fluid left adnexa 6. Posterior cul-de-sac: wnl IMPRESSION: 1. Thin endometrial stripe. There is a trace sliver of fluid within the uterine cavity indicated by t he clinical support manager but not well demonstrated on the provided images. Recommend 4-6 month follow-up to thanh ssess. 2. Small postmenopausal ovaries. However, there is a small amount of fluid within the left adnexa of uncertain clinical significance. Consider short interval follow-up.
== END | disposition home or self-care (01) ==
LOC: RADUSWWP 14:48
PROVIDERS: ATTEND Obstetrics & Gynecology
DX: N83.01 Follicular cyst of right ovary (principal); Z78.0 Asymptomatic menopausal state
CPT/HCPCS: 76856

== ENCOUNTER → 2023-06-22 | Outpatient (CLI) | payer MEDICARE | END | disposition home or self-care (01) | LOC: LABWHC1 10:10 | PROVIDERS: ATTEND Obstetrics & Gynecology | DX: C56.9 Malignant neoplasm of unspecified ovary (principal); N83.209 Unspecified ovarian cyst, unspecified side | CPT/HCPCS: 36415; 86304 ==

== ENCOUNTER → 2023-06-22 | Outpatient (CLI) | payer MEDICARE ==
--- NOTE | 2023-06-22 12:37 | BD ---
EXAMINATION TYPE: Axial Bone Density DATE OF EXAM: 06/22/2023 CLINICAL HISTORY: 72 years old Female. ICD-10 CODE: Z12.31 Screening mammogram Height: 5 ft 7 in Weight: 187 FRAX RISK QUESTIONS: Alcohol (3 or more units per day): no Family History (Parent hip fracture): no Glucocorticoids (More than 3mos): no (Ex: prednisone, prednisolone, methylprednisolone, dexamethasone, and hydrocortisone). History of Fracture in Adulthood: yes Secondary Osteoporosis: 1. Type 1 Diabetes: no 2. Hyperthyroidism: no 3. Menopause before 45: no 4. Malnutrition: no 5. Chronic liver disease: no Rheumatoid Arthritis: no Current Tobacco Use: no RISK FACTORS HISTORY OF: Surgery to Spine/Hip(right/left)/Wrist (right/left): lumbar surg When: 2022 Family History of Osteoporosis: yes Active: yes Diet low in dairy products/other sources of calcium: no Postmenopausal woman: yes Take estrogen and/or progesterone medications: no Lost more than 2 inches in height since high school: no Frequent falls: no Poor Health: good Hyperparathyroidism: no Adrenal Insufficiency: no MEDICATIONS: Additional Medications: Wellbutrin, Lipitor, metoprolol, eliquis, meclizine, Additional History: EXAM MEASUREMENTS: Bone mineral density about the R hip (g/cm2): 0.905 Bone mineral density about the L hip (g/cm2): 0.862 T Score values are as follows: -----R Neck: -1.0 -----L Neck: -1.3 -----R Total: -0.9 -----L Total: -1.0 Z Score values are as follows: -----R Neck: 0.4 -----L Neck: 0.1 -----R Total: 0.3 -----L Total: 0.2 Bone mineral density has: decreased -1.7 % since study of: 2020 Bone mineral density about the L Wrist (g/cm2): 0.542 T Score values are as follows: -----Dist. R+U: -2.6 -----Prox. R+U: -2.2 -----Radius total: -2.2 Z Score values are as follows: -----Dist. R+U: -0.5 -----Prox. R+U: -0.1 -----Radius total: -0.1 baseline FRAX%s: The graph provided illustrates a 15.4 % chance for a major osteoporotic fx and a 2.2 % chance for the hips probability for fx in 10 years time. IMPRESSION: Osteopenia (T Score between -2.5 and -1). There is slightly increased risk of fracture and the patient may be considered for treatment. Re-Screen 2-5 years. NOTE: T-SCORE=SD OF THE YOUNG ADULT MEAN.
--- NOTE | 2023-06-25 23:27 | MM ---
Reason for Exam: Screening (asymptomatic). Last mammogram was performed 1 year(s) and 1 month(s) ago. Patient History: Menarche at age 13. First Full-Term at age 25. Postmenopausal. Estrogen for 6 years until age 55. Progesterone for 5 years until age 55. Risk Values: Alena 5 year model risk: 2.0%. NCI Lifetime model risk: 5.1%. Prior Study Comparison: 03/21/2020 Bilateral Screening Mammogram, [facility]. 05/11/2021 Bilateral Screening Mammogram, [facility]. 05/13/2022 Bilateral MG 3D screening mammo w/cad, [facility]. Tissue Density: There are scattered fibroglandular densities. Findings: Analyzed By CAD. There is no suspicious group of microcalcifications or new suspicious mass in either breast. Overall Assessment: Negative, BI-RAD 1 Management: Screening Mammogram of both breasts in 1 year. . Patient should continue monthly self-breast exams. A clinical breast exam by your physician is recommended on an annual basis. This exam should not preclude additional follow-up of suspicious palpable abnormalities. Note on Alena scores and lifetime risk: 1. A Alnea score greater than 3% is considered moderate risk. If this is the case, consider specialist referral to assess eligibility for a risk reducing agent. 2. If overall lifetime risk for the development of breast cancer is 20% or higher, the patient may qualify for future screening with alternating mammogram and breast MRI. Electronically signed and approved by: Pako Carty M.D. Radiologist
== END | disposition home or self-care (01) ==
LOC: RADMAMWWP 09:31
PROVIDERS: ATTEND Obstetrics & Gynecology
DX: Z12.31 Encounter for screening mammogram for malignant neoplasm of breast (principal); M81.0 Age-related osteoporosis without current pathological fracture; M85.852 Other specified disorders of bone density and structure, left thigh; Z78.0 Asymptomatic menopausal state
CPT/HCPCS: 77063; 77067; 77080

== ENCOUNTER → 2023-11-14 | Outpatient (CLI) | payer MEDICARE ==
--- NOTE | 2023-11-14 15:01 | MM ---
Reason for Exam: Follow-up at short interval from prior study. Last screening mammogram was performed 5 month(s) ago. Patient History: Menarche at age 13. First Full-Term at age 25. Postmenopausal. Estrogen for 6 years until age 55. Progesterone for 5 years until age 55. Risk Values: Alena 5 year model risk: 2.0%. NCI Lifetime model risk: 4.8%. Prior Study Comparison: 05/11/2021 Bilateral Screening Mammogram, [facility]. 05/13/2022 Bilateral MG 3D screening mammo w/cad, [facility]. 06/22/2023 Bilateral MG 3D screening mammo w/cad, [facility]. Tissue Density: Right: The breasts are heterogeneously dense, which may obscure small masses. Findings: Analyzed By CAD. Chronic nodularity central right breast middle to posterior depth. Slightly inverted right nipple. This may have been present previously as well. Further ultrasound evaluation can BE performed. Otherwise, no significant change. Overall Assessment: Incomplete: need additional imaging evaluation, BI-RAD 0 Management: Diagnostic Breast Ultrasound of the right breast. Electronically signed and approved by: Pako Carty M.D. Radiologist
--- NOTE | 2023-11-14 15:27 | USB ---
Reason for Exam: Clinical finding. Patient History: Menarche at age 13. First Full-Term at age 25. Postmenopausal. Estrogen for 6 years until age 55. Progesterone for 5 years until age 55. Risk Values: Alena 5 year model risk: 2.0%. NCI Lifetime model risk: 4.8%. Technique: Method: Targeted. Prior Study Comparison: 05/11/2021 Bilateral Screening Mammogram, [facility]. 05/13/2022 Bilateral MG 3D screening mammo w/cad, [facility]. 06/22/2023 Bilateral MG 3D screening mammo w/cad, [facility]. Findings: The axilla of the right breast and the retroareolar of the right breast were scanned. Targeted ultrasound subareolar and periareolar right breast including scanning of the axilla. No solid or cystic lesion or axillary lymphadenopathy. Overall Assessment: Benign, BI-RAD 2 Management: Screening Mammogram of both breasts in 1 year. Further clinical management of patient's reported right nipple inversion. A clinical breast exam by your physician is recommended on an annual basis and results should be correlated with mammographic findings. This exam should not preclude additional follow-up of suspicious palpable abnormalities. Results were given to the patient verbally at the time of exam. Electronically signed and approved by: Pako Carty M.D. Radiologist
== END | disposition home or self-care (01) ==
LOC: RADMAMWWP 14:38
PROVIDERS: ATTEND Obstetrics & Gynecology
DX: Z53.9 Procedure and treatment not carried out, unspecified reason (principal)
CPT/HCPCS: 77065; 76642; G0279; 77061

== ENCOUNTER → 2024-07-26 | Outpatient (CLI) | payer MEDICARE ==
--- NOTE | 2024-07-27 08:42 | US ---
EXAMINATION TYPE: US pelvis complete transvag DATE OF EXAM: 07/26/2024 COMPARISON: US 2022 CLINICAL INDICATION: Female, 74 years old with history of R10.2 PELVIC AND PERINEAL PAIN; TECHNIQUE: Transvaginal (TV) and Transabdominal (TA) . FINDINGS: Date of LMP: 24 years ago EXAM MEASUREMENTS: Uterus: 5.6 x 2.2 x 3.0 cm Endometrial Stripe: 0.2 cm Right Ovary: not seen Left Ovary: 1.8 x 1.1 x 1.0 cm 1. Uterus: anteverted 2. Endometrium: possible tiny amount of fluid in endo 3. Right Ovary: not seen due to overlying bowel gas 4. Left Ovary: wnl 5. Bilateral Adnexa: wnl 6. Posterior cul-de-sac: wnl IMPRESSION: 1. Visualized pelvic structures appear unremarkable [facility], , 07/27/2024 8:40 AM
== END | disposition home or self-care (01) ==
LOC: RADUSWWP 16:06
PROVIDERS: ATTEND Obstetrics & Gynecology
DX: R10.2 Pelvic and perineal pain (principal)
CPT/HCPCS: 76830; 76856